=== PATIENT | male | born 1950 | race Asian ===

== ENCOUNTER 2018-07-18 00:44 | Emergency (ER) | payer OTHER ==
[~2018-07-18] VITALS: Ht 167.6 cm; Wt 63.2 kg
--- NOTE | 2018-07-18 01:06 | NUR ---
BIB WHEELCHAIR TO ER BED 5
[2018-07-18 01:07] VITALS: BP 144/78
[2018-07-18] MEDS ORDERED: METF1000 PO (01:13)
[2018-07-18] MEDS ORDERED: GLIP5TAB4 PO (01:13)
--- NOTE | 2018-07-18 01:19 | NUR ---
PT PRESENTS TO ED WITH C/O OF H/A, N/V, DIZZINESS, HALO AROUND EYES, NO TRAUMA. MUSCLE STRENGTH EQUAL BILATERALLY. PUPILS EQUAL, REACTIVE, ROUND, TO LIGHT AND ACCOMODATION. SPEECH IS NORMAL AND APPROPRIATE. PT PLACED ON ALL MONITORS. VSS. PENDING MD MATAMOROS.
--- NOTE | 2018-07-18 01:20 | NUR ---
CHIARA MATA AT BEDSIDE FOR EVAL.
[2018-07-18] MEDS ORDERED: NACL 0.9% 500 ML IV ONE (01:25)
[2018-07-18] MEDS ORDERED: MECLIZINE 25 MG TAB PO ONE (01:25)
[2018-07-18] MEDS ORDERED: ONDANSETRON 4 MG ODT PO ONE (01:25)
[2018-07-18 03:08] VITALS: BP 131/78
== END 2018-07-18 03:08 | disposition home or self-care (01) ==
LOC: MED 00:44
DX: R42 Dizziness and giddiness (principal); R11.10 Vomiting, unspecified; E11.9 Type 2 diabetes mellitus without complications; I10 Essential (primary) hypertension; Z79.84 Long term (current) use of oral hypoglycemic drugs
CPT/HCPCS: 70450; 81002; 82948; 93005; 99284; J7030; J8597; Q0162; 99283